=== PATIENT | male | born 1995 | race Caucasian/White ===

== ENCOUNTER 2019-07-26 08:50 | Emergency (ER) | payer SELFPAY ==
[~2019-07-26] VITALS: Ht 172.7 cm; Wt 97.1 kg
[2019-07-26 08:54] VITALS: Ht 172.7 cm; Wt 97.1 kg
[2019-07-26 09:15] LABS: BASOPHIL % 0.3 % (0-2); PLATELET COUNT 212 x10^3mcL (130-400); RED CELL DISTRIBUTION WIDTH 13.2 % (11.5-14.5)
[2019-07-26 09:27] LABS: CALCIUM 9.3 mg/dL (8.5-10.1); CARBON DIOXIDE 21.6 mmol/L (21-32); CHLORIDE SERUM 100 mmol/L (98-107); CREATININE SERUM 1.3 mg/dL (0.7-1.3); GFR1 > 60 mL/min; GLUCOSE SERUM 139 mg/dL (74-106); POTASSIUM SERUM 3.4 mmol/L (3.5-5.1); SODIUM SERUM 136 mmol/L (136-145)
[2019-07-26 09:31] LABS: ALBUMIN 4.2 g/dL (3.4-5.0); ALKALINE PHOSPHATASE 75 U/L (46-116); ALT/SGPT 47 U/L (16-63); AST/SGOT 25 U/L (15-37); BILIRUBIN TOTAL 0.6 mg/dL (0.20-1.00); CHOLESTEROL 191 mg/dL (<200); CHOLESTEROL/HDL RATIO 4.8; HDL CHOLESTEROL 40 mg/dL (40-60); LIPASE 707 IU/L (73-393); TOTAL PROTEIN, SERUM 7.8 g/dL (6.4-8.2); TRIGLYCERIDES 81 mg/dL (<150)
[2019-07-26 11:19] LABS: microscopic required? YES; urine erythrocyte 1+ (NEGATIVE)
[2019-07-26 11:35] LABS: AMPHETAMINE QUAL UR NONE DETECTED (See below)
[2019-07-26 12:13] VITALS: BP 114/60
== END 2019-07-26 12:13 | disposition home or self-care (01) ==
LOC: ED 08:50
PROVIDERS: Specialist
DX: N23 Unspecified renal colic (principal); R19.7 Diarrhea, unspecified
CPT/HCPCS: G0480; J1885; J3010; J3490; J7030; Q0092; Q0162